=== PATIENT | female | born 1955 | race Caucasian/White ===

== ENCOUNTER 2016-09-18 22:41 | Emergency (ER) | payer BC ==
[~2016-09-18] VITALS: Ht 157.5 cm; Wt 79.8 kg
[~2016-09-18 22:41] MED LIST: DIPH25CA5 PO
[2016-09-18 22:48] VITALS: Ht 157.5 cm; Wt 79.8 kg
[2016-09-18] MEDS ORDERED: ACETAMINOPHEN 500 MG TAB PO STA (23:09)
[2016-09-18 23:36] LABS: URINE APPEARANCE CLEAR (CLEAR); URINE BILIRUBIN NEG (NEG); URINE COLOR YELLOW; URINE NITRITE NEG (NEG); URINE SPECIFIC GRAVITY 1.028 (1.000-1.030); UROBILINOGEN NEG (NEG); ZZUR CULT IF INDIC CLEAN CATCH NO
[2016-09-18 23:44] LABS: MANUAL MICROSCOPIC REQUIRED? NO; REVIEW REQ? NO
[2016-09-19 00:16] VITALS: BP 174/101; PULSE 106; TEMP 36.9; O2SAT 97
[2016-09-19 01:33] LABS: INFLUENZA A PCR Neg for Influ A (NEG); INFLUENZA B PCR Neg for Influ B (NEG)
--- NOTE | 2016-09-19 01:59 | EMERGENCY ROOM VISIT NOTE ---
History First contact with patient: 22:57 Chief Complaint: OTHER COMPLAINT Stated Complaint: LIP BLEEDING History of Present Illness The patient is a 61 year old female who presents to the Emergency Room with complaints of upper lip bleeding that is now resolved. Patient has rosacea and uses a lot of facial creams. Patient just noticed she had a fever when she arrived here. Patient denies chest pain, dyspnea, cough, congestion, headache, neck surface, sore throat, back pain, abdominal pain, urinary symptoms. Patient states she is healthy with no real medical problems. No alcohol or drug use. No recent travel. Review of Systems See HPI for pertinent positives & negatives. A total of 10 systems reviewed and were otherwise negative. Past Medical/Surgical History Rosacea Social History Smoking Status: Never Smoker Alcohol Use: occasionally Occupation Status: employed Current/Historical Medications Scheduled Diphenhydramine Hcl (Benadryl), 25 MG PO PRN Allergies Coded Allergies: Penicillins (Verified Allergy, Mild, RASH, 09/08/12) Sulfa Drugs (Verified Allergy, Mild, RASH, 09/08/12) Azithromycin (Verified Allergy, rash, 09/08/12) Physical Exam Vital Signs Date Time Temp Pulse Resp B/P (MAP) Pulse Ox O2 Delivery O2 Flow Rate FiO2 09/19/16 00:16 36.9 106 18 174/101 97 09/18/16 23:59 36.9 106 18 174/101 97 Room Air 09/18/16 22:48 38.4 119 20 176/109 96 Room Air Physical Exam VITALS: Vitals are noted on the nurse's note and reviewed by myself. Vital signs stable. GENERAL: Pleasant female, in no acute distress, nondiaphoretic, well-developed well-nourished. SKIN: The skin was without rashes, erythema, edema, or bruising. There is no tenting of the skin. Capillary reflex less than 2 seconds. HEAD: Normocephalic atraumatic. EARS: External auditory canals clear, tympanic membranes pearly delgado without erythema or effusion bilaterally. EYES: Pupils equal round and reactive to light and accommodation. Conjunctivae without injection, sclerae without icterus. Extraocular movements intact. NOSE: Patent, turbinates without inflammation or discharge. No sinus tenderness. MOUTH: Upper lip on the vermilion border with superficial abrasion with minimal blood present 2 mm in size Mucous membranes moist. Pharynx without erythema or exudate. Uvula midline. Airway patent. Tongue does not deviate. NECK: Supple without nuchal rigidity. No lymphadenopathy. No thyromegaly. Cervical spine is nontender. No JVD. No meningeal signs HEART: Regular rate and rhythm without murmurs gallops or rubs. LUNGS: Clear to auscultation bilaterally without wheezes, rales or rhonchi. No dullness to percussion. No retractions or accessory muscle use. ABDOMEN: Positive bowel sounds x 4. Normal tympanic percussion. Soft, nontender, without masses or organomegaly. Gillis sign negative. No guarding or rebound tenderness. No CVA tenderness MUSCULOSKELETAL: No muscle atrophy, erythema, or edema noted. NEURO: Patient was alert and oriented to person place and time. Normal sensation to light and sharp touch. No focal neurological deficits. Medical Decision & Procedures Laboratory Results Test 09/18/16 23:24 Urine Color YELLOW Urine Appearance CLEAR (CLEAR) Urine pH 5.0 (4.5-7.5) Urine Specific [place] 1.028 (1.000-1.030) Urine Protein NEG (NEG) Urine Glucose (UA) NEG (NEG) Urine Ketones NEG (NEG) Urine Occult Blood NEG (NEG) Urine Nitrite NEG (NEG) Urine Bilirubin NEG (NEG) Urine Urobilinogen NEG (NEG) Urine Leukocyte Esterase NEG (NEG) Influenza Type A (RT-PCR) Neg for Influ A (NEG) Influenza Type A Antigen Neg for Influ A (NEG) Influenza Type B Antigen Neg for Influ B (NEG) Influenza Type B (RT-PCR) Neg for Influ B (NEG) Medications Administered Medications (Trade) Dose Ordered Sig/Vera Route Start Time Stop Time Status Last Admin Dose Admin Acetaminophen (Tylenol Tab) 1,000 mg NOW STAT PO 09/18/16 23:09 09/18/16 23:10 DC 09/18/16 23:22 1,000 MG ED Course Prior records/ancillary studies reviewed. Triage Nursing notes reviewed. Additional history obtained from friend The patient's history was concerning for fever. Differential diagnosis: Etiologies such as viral syndrome, otitis, pharyngitis, pneumonia, influenza, meningitis, urinary tract infection, sepsis, bacteremia, as well as others were entertained. Physical examination: Patient was alert, interactive and well-appearing ER treatment provided: Dermabond was placed to the superficial abrasion and hemostasis was achieved with Tylenol On reassessment the patient felt better. Diagnostics interpreted by me: The labs revealed negative flu and urine This appears to be consistent with lip abrasion and fever. The specific as viral in etiology. Patient was asymptomatic. This is an incidental finding on vital signs. Patient was advised follow-up for her high blood pressure. She is advised follow-up family care in a day or 2 or here in the ER sooner for high fevers, lethargy, neck stiffness, cough, worsening signs or symptoms or as needed. Patient's lungs are clear. She had no signs of pneumonia on clinical exam. She is well-appearing and requested to leave. She is discharged home in stable condition. By the evaluation outlined above emergent etiologies such as otitis, pharyngitis, pneumonia, meningitis, urinary tract infection, sepsis, bacteremia, as well as others were deemed relatively unlikely. The pt informed about the findings as listed above. All questions were answered and pleased with the treatment. Return instructions were outlined and the patient was discharged in stable condition. Referral: The patient was referred back to their primary care physician for follow-up in 2 to 3 days for a recheck of the current condition. Medical Decision As above Patient was found to have elevated blood pressure and was referred to their family doctor for recheck and further treatment. Medications reviewed Impression Primary Impression: Lip abrasion Additional Impression: Fever Departure Information Referrals Pratibha Pfeiffer D.O. (PCP) Patient Instructions My [facility] Problem Qualifiers Primary Impression: Lip abrasion Encounter type: initial encounter Qualified Codes: S00.511A - Abrasion of lip, initial encounter Additional Impression: Fever Fever type: unspecified Qualified Codes: R50.9 - Fever, unspecified
== END 2016-09-19 00:14 | disposition home or self-care (01) ==
LOC: C.EDB 22:43 → C.EDA 09-19 00:14
DX: S00.511A Abrasion of lip, initial encounter (principal); X58.XXXA Exposure to other specified factors, initial encounter; R50.9 Fever, unspecified

== ENCOUNTER → 2017-04-30 | Outpatient (CLI) | payer OTHER | END | disposition home or self-care (01) | LOC: C.LAB 11:55 | DX: Z02.83 Encounter for blood-alcohol and blood-drug test (principal) ==